=== PATIENT | female | born 1990 | race Caucasian/White ===

== ENCOUNTER 2017-07-27 23:10 | Emergency (ER) | payer OTHER ==
[2017-07-27 23:29] VITALS: BP 107/65; PULSE 85; TEMP 98.5; BMI 31.2
--- NOTE | 2017-07-28 00:38 | PDOC ---
History of Present Illness - General Chief Complaint: Pain, Acute Stated Complaint: ABDOMINAL PAIN/4 WKS Time Seen by Provider: 07/27/17 23:34 - History of Present Illness Initial Comments: 27 year old healthy [id number] ( 5 years prior) with positive upreg (LMP 06/07/17) at [place] presenting with breast soreness and left lower quadrant pain. The pain started yesterday evening and is sharp 8/10, semi-positional, non -radiating. Did not use any medication for the pain. denies dysuria, vaginal bleeding, vaginal discharge, nausea, vomiting,. diarrhea, chest pain, SOB, or other symptoms. She does not have a mcat tutor and is not taking vitamins. 07/27/17 23:50 Past History - Past Medical History Allergies/Adverse Reactions: Allergies Allergy/AdvReac Type Severity Reaction Status Date / Time No Known Allergies Allergy Verified 07/27/17 23:26 Home Medications: Ambulatory Orders Ferrous Sulfate [Feosol] 325 mg PO BID #1 ud 04/24/12 Vitamins (Sjr) - 1 tab PO DAILY #1 tablet 04/24/12 Asthma: No Cancer: No Cardiac Disorders: No Diabetes: No HTN: No Seizures: No Thyroid Disease: No - Suicide/Smoking/Psychosocial Hx Smoking History: Never smoked Have you smoked in the past 12 months: No Hx Alcohol Use: No Drug/Substance Use Hx: No Hx Substance Use Treatment: No Review of Systems - Review of Systems Constitutional: No: Chills, Diaphoresis, Fever, Loss of Appetite HEENTM: No: Eye Pain, Blurred Vision Respiratory: No: Cough, Shortness of Breath, Wheezing Cardiac (ROS): No: Chest Pain, Edema, Irregular Heart Rate ABD/GI: No: Diarrhea, Nausea, Vomiting : No: Dysuria, Discharge, Frequency Musculoskeletal: No: Back Pain, Joint Pain Integumentary: No: Bruising, Erythema, Lesions, Lumps, Pruritus Neurological: No: Headache, Numbness, Paresthesia *Physical Exam - Vital Signs Last Vital Signs Temp Pulse Resp BP Pulse Ox 98.5 F 85 16 107/65 100 07/27/17 23:26 07/27/17 23:26 07/27/17 23:26 07/27/17 23:26 07/27/17 23:26 - Physical Exam General Appearance: Yes: Nourished, Appropriately Dressed. No: Apparent Distress HEENT: positive: EOMI, PAZ, Normal ENT Inspection, Normal Voice Neck: positive: Trachea midline, Normal Thyroid, Supple. negative: Tender, Rigid Respiratory/Chest: positive: Lungs Clear, Normal Breath Sounds, Respiratory Distress. negative: Chest Tender, Accessory Muscle Use Cardiovascular: positive: Regular Rhythm, Regular Rate Gastrointestinal/Abdominal: positive: Normal Bowel Sounds, Tender (LLQ tenderness), Flat, Soft Musculoskeletal: positive: Normal Inspection. negative: CVA Tenderness Extremity: positive: Normal Capillary Refill, Normal Inspection, Normal Range of Motion. negative: Tender Integumentary: positive: Normal Color, Dry, Warm Neurologic: positive: Fully Oriented, Alert, Normal Mood/Affect, Normal Response ED Treatment Course - LABORATORY CBC & Chemistry Diagram: 07/28/17 00:48 07/28/17 00:48 - RADIOLOGY Radiology Studies Ordered: Category Date Time Status TRANSVAGINAL US PREG [US] Stat Ultrasound 07/27/17 23:48 Ordered Medical Decision Making - Medical Decision Making 27 year old female with positive urine preg and left lower quadrant pain. Abdominal exam signifciant for some mild tenderness to deep plapation in the LLQ. BHCG 1357 without evidence of on TVUS so likely early IUP vs. ectopic. Will have to have her follow up in two days for repeat hcg and US. Will discharge with return precautions, follow up information, and tylenol use instructions for her pain. 07/28/17 02:50 *DC/Admit/Observation/Transfer Diagnosis at time of Disposition: Qualifiers: Weeks of gestation: less than 8 weeks Qualified Code(s): Z3A.01 - Less than 8 weeks gestation of - Discharge Dispostion Disposition: HOME Condition at time of disposition: Improved Admit: No - Referrals Referrals: Alfonso Montejo MD [Staff Physician] - - Patient Instructions Printed Discharge Instructions: DI for -- Discomforts and Remedies Additional Instructions: Est embarazada, cruz puede ser demasiado temprano para lisa el embarazo con ultrasonido. Debe seguir con el Dr. Solitario para obtener un buen cuidado de webb beb por nacer y programar otro ultrasonido. Por favor use Tylenol para el dolor. Regrese al servicio de urgencias si el dolor empeora a pesar de Tylenol o si tiene sangrado vaginal, fiebre, escalofros, nuseas, vmitos o diarrea. Print Language: TAJIK - Post Discharge Activity
--- NOTE | 2017-07-28 00:49 | PDOC ---
Attending Attestation - Resident Resident Name: Erendira Craig - ED Attending Attestation I have performed the following: I have examined & evaluated the patient, The case was reviewed & discussed with the resident, I agree w/resident's findings & plan, Exceptions are as noted <Josafat Odonnell - Last Filed: 07/28/17 00:49> - HPI HPI: 07/28/17 00:52 The patient is a 27 year old female, , with no significant past medical history, who presents to the emergency department with left lower abdominal pain and bilateral breast soreness today after having a positive urine test. She states the abdominal pain keeps her from sleeping. She denies radiation of her left lower abdominal pain. 06/07/17 LMP The patient denies chest pain, shortness of breath, headache and dizziness. The patient denies fever, chills, nausea, vomit, diarrhea and constipation. The patient denies dysuria, frequency, urgency hematuria, or vagnal bleeding. Allergies: NKDA - Physicial Exam PE: 07/28/17 00:52 GENERAL: Well developed, well nourished. Awake and alert. No acute distress. HEENT: Normocephalic, atraumatic. PERRLA, EOMI. No conjunctival pallor. Sclera are non- icteric. Moist mucous membranes. Oropharynx is clear. NECK: Supple. Full ROM. No JVD. Carotid pulses 2+ and symmetric, without bruits. No thyromegaly. No lymphadenopathy. CARDIOVASCULAR: Regular rate and rhythm. No murmurs, rubs, or gallops. Distal pulses are 2+ and symmetric. PULMONARY: No evidence of respiratory distress. Lungs clear to auscultation bilaterally. No wheezing, rales or rhonchi. ABDOMINAL: (+) left lower abdominal tenderness to palpation. Soft. Non-distended. No rebound or guarding. No organomegaly. Normoactive bowel sounds. MUSCULOSKELETAL Normal range of motion at all joints. No bony deformities or tenderness. No CVA tenderness. EXTREMITIES: No cyanosis. No clubbing. No edema. No calf tenderness. SKIN: Warm and dry. Normal capillary refill. No rashes. No jaundice. NEUROLOGICAL: Alert, awake, appropriate. Cranial nerves 2-12 intact. Normoreflexic in the upper and lower extremities. Normal speech. Toes are down-going bilaterally. Gait is normal without ataxia. PSYCHIATRIC: Cooperative. Good eye contact. Appropriate mood and affect. - Medical Decision Making 07/28/17 00:53 Documentation prepared by Nathaly Smart, acting as medical receptionist for Josafat Odonnell DO. <Nathaly Smart - Last Filed: 07/28/17 00:53>
[2017-07-28 00:53] LABS: BASO % 0.7 % (0-2.0); EOS % 0.8 % (0-4.5); HEMOGLOBIN 11.9 GM/dL (10.7-15.3); LYMPH % 26.9 % (8-40); MCH 29.6 pg (25.7-33.7); MCHC 33.1 g/dl (32.0-36.0); MEAN CELL VOLUME 89.6 fl (80-96); MEAN PLT VOLUME 8.3 fl (7.5-11.1); MONO % 8.9 % (3.8-10.2); NEUT % 62.7 % (42.8-82.8); PLATELET COUNT 222 K/MM3 (134-434); RBC 4.01 M/mm3 (3.60-5.2); RDW 13.6 % (11.6-15.6); WHITE BLOOD COUNT 7.6 K/mm3 (4.0-10.0)
[2017-07-28 00:58] LABS: URINE APPEARANCE CLEAR; URINE BILIRUBIN NEGATIVE (NEGATIVE); URINE BLOOD NEGATIVE (NEGATIVE); URINE COLOR STRAW; URINE GLUCOSE (UA) NEGATIVE (NEGATIVE); URINE KETONE NEGATIVE (NEGATIVE); URINE LEUK ESTERASE TRACE (NEGATIVE); URINE NITRITE NEGATIVE (NEGATIVE); URINE PROTEIN NEGATIVE (NEGATIVE); URINE UROBILINOGEN NEGATIVE mg/dL (0.2-1.0)
[2017-07-28 01:10] LABS: EPI CELLS RARE /HPF (FEW)
[2017-07-28 01:16] LABS: ALBUMIN 3.8 g/dl (3.4-5.0); ANION GAP 9 (8-16); BILIRUBIN,TOTAL 0.2 mg/dL (0.2-1.0); BLOOD UREA NITROGEN 9 mg/dL (7-18); CALCIUM 9.1 mg/dL (8.5-10.1); CHLORIDE 107 mmol/L (98-107); CO2 24 mmol/L (21-32); CREATININE 0.6 mg/dL (0.55-1.02); GLUCOSE,RANDOM 82 mg/dL (74-106); POTASSIUM 3.9 mmol/L (3.5-5.1); SGOT/AST 22 U/L (15-37); SGPT/ALT 45 U/L (12-78); SODIUM 140 mmol/L (136-145); TOT PROT 7.4 g/dl (6.4-8.2)
[2017-07-28 01:31] LABS: ALK PHOS 74 U/L (45-117)
== END 2017-07-28 03:40 | disposition home or self-care (01) ==
LOC: JER 23:10
DX: O26.891 Other specified pregnancy related conditions, first trimester (principal); R10.32 Left lower quadrant pain; O92.29 Other disorders of breast associated with pregnancy and the puerperium; Z3A.01 Less than 8 weeks gestation of pregnancy
CPT/HCPCS: 36415; 76817-TC; 80053; 81003; 81015; 84702; 85025; 86850; 86900; 86901; 87086; 99282-25

== ENCOUNTER 2018-03-13 20:15 | Inpatient (IN) | payer OTHER ==
[2018-03-13 21:04] LABS: BASO % 0.5 % (0-2.0); EOS % 0.5 % (0-4.5); HEMATOCRIT 32.5 % (32.4-45.2); HEMOGLOBIN 10.9 GM/dL (10.7-15.3); LYMPH % 18.1 % (8-40); MCH 30.9 pg (25.7-33.7); MCHC 33.7 g/dl (32.0-36.0); MEAN CELL VOLUME 91.6 fl (80-96); MEAN PLT VOLUME 8.6 fl (7.5-11.1); MONO % 8.4 % (3.8-10.2); NEUT % 72.5 % (42.8-82.8); PLATELET COUNT 234 K/MM3 (134-434); RBC 3.55 M/mm3 (3.60-5.2); RDW 13.3 % (11.6-15.6); WHITE BLOOD COUNT 7.5 K/mm3 (4.0-10.0)
[2018-03-13 21:30] LABS: INR 0.88 (0.83-1.09)
[2018-03-13 21:33] LABS: ACTIVATED PTT 25.8 SECONDS (25.2-36.5)
[2018-03-13 21:37] LABS: ANION GAP 11 MMOL/L (8-16); BLOOD UREA NITROGEN 7 mg/dL (7-18); CALCIUM 9.1 mg/dL (8.5-10.1); CHLORIDE 109 mmol/L (98-107); CO2 21 mmol/L (21-32); CREATININE 0.5 mg/dL (0.55-1.3); GLUCOSE,RANDOM 97 mg/dL (74-106); POTASSIUM 3.7 mmol/L (3.5-5.1); SODIUM 141 mmol/L (136-145)
[2018-03-13 22:43] VITALS: BMI 35.5
--- NOTE | 2018-03-13 22:50 | HP ---
Past Medical History - Admission Chief Complaint: Induction for cholestasis of History of Present Illness: 28yo LMP 06/07 EDC 03/28 by 8 week sonkaty presents for induction for cholestasis of . Pt with elevated bile acids of 20 and discomfort because of pruritis. PNC at [facility] [address] significant for cholestasis of dx recently. 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 SPECIALIST: No: Alzheimer's, CVA, Dementia, Migraine, Multiple Sclerosis, Peripheral Neuropathy, Parkinson's, Seizure, Syncope, TIA, Vertigo, Other Cardiovascular: No: AFIB, Aneurysm, Aortic Insufficiency, Aortic Stenosis, CAD, CHF, Deep Vein Thrombosis, HTN, Hyperlipdemia, [place], Mitral Insufficiency, Mitral Stenosis, Murmur, Pulmonary Hypertension, Other Pulmonary: No: Asthma, Bronchitis, Cancer, COPD, O2 Dependent, Pneumonia, Previously Intubated, Pulmonary Embolus, Pulmonary Fibrosis, Sleep Apnea, Other Gastrointestinal: No: Ascites, Cancer, Constipation, Crohn's Disease, Diverticulitis, Diverticulosis, Esophageal Varices, Gastritis, GERD, GI Bleed, Hemorrhoids, Hiatal Hernia, Inflamatory Bowel Disease, Irritable Bowel Disease, Pancreatitis, Peptic Ulcer Disease, Ulcerative Colitis, Other Hepatobiliary: No: Cirrhosis, Cholelithiasis, Cholecystitis, Choledocholithiasis , Hepatitis A, Hepatitis B, Hepatitis C, Other Renal/: No: Renal Failure, Renal Inusuff, BPH, Cancer, Hematuria, Hemodialysis , Neurogenic Bladder, Renal Calculi, UTI, Other Reproductive: No: Ectopic , Endometriosis, Fibroids, PID, Polycystic Ovary Syndrome, Postmenopausal, Other ...: 2 ...Para: 1 ...Term: 1 ...: 0 ...Spon : 0 ...Induced : 0 ...Multiple Gestation: 0 ...LMP: 06/07/18 ...EDC by Sono: 03/28/18 Heme/Onc: No: Anemia, B12 Deficiency, Bleeding Disorder, Cancer, Current Chemotherapy, Current Radiation Therapy, Hemochromatosis, Hypercoaguable State, Myeloproliferative Synd, Sickle Cell Disease, Sickle Cell Trait, Thrombocytopenia, Other Infectious Disease: No: AIDS, C-Diff, Herpes Zoster, HIV, MRSA, STD's, Tuberculosis, VREF, Other Psych: No: Addictions, Anxiety, Bipolar, Depression, Panic, Psychosis, Schizophrenia, Other Musculoskeletal: No: Bursitis, Chronic low back pain, Hemiparesis, Hemiplegia, Osteoarthritis, Paraplegia, Other Endocrine: No: Pine's Disease, Saulsbury's Disease, Diabetes Insipidus, Diabetes Mellitus, Hyperparathyroidism, Hyperthyroidism, Hypothyroidism, Osteopenia, SIADH, Other - Past Surgical History Past Surgical History: Yes: None Hx Myomectomy: No Hx Transabdominal Cerclage: No - Smoking History Smoking history: Never smoked Have you smoked in the past 12 months: No - Alcohol/Substance Use Hx Alcohol Use: No History of Substance Use: reports: None Home Medications - Allergies Allergies/Adverse Reactions: Allergies Allergy/AdvReac Type Severity Reaction Status Date / Time No Known Allergies Allergy Verified 07/27/17 23:26 - Home Medications Home Medications: Ambulatory Orders Ferrous Sulfate [Feosol] 325 mg PO BID #1 ud 04/24/12 Vitamins (Sjr) - 1 tab PO DAILY #1 tablet 04/24/12 Family Disease History - Family Disease History Family History: Unremarkable Review of Systems - Review of Systems Constitutional: denies: No Symptoms, Chills, Diaphoresis, Fever, Lethargy, Loss of Appetite, Malaise, Night Sweats, Unintentional Wgt. Loss, Weakness, Other Eyes: denies: No Symptoms, Blind Spots, Blurred Vision, Double Vision, Eye Pain , Floaters, Photophobia, Recent Change in Vision, Other HENT: denies: No Symptoms, Difficult Swallowing, Ear Discharge, Ear Pain, Epistaxis, Gingival Bleeding, Hearing Loss, Mouth Swelling, Nasal Congestion, Ocular Prosthesis, Throat Pain, Toothache, Ringing in Ears, Other Neck: denies: No Symptoms, Decreased ROM, Lumps, Pain on Movement, Stiffness, Swollen Glands, Tenderness, Other Cardiovascular: denies: No Symptoms, Chest Pain, Edema, Palpitations, Shortness of Breath, Other Respiratory: denies: No Symptoms, Cough, Exercise Intolerance, Hemoptysis, Orthopnea, PND, Snoring, SOB, SOB on Exertion, Wheezing, Other Gastrointestinal: denies: No Symptoms, Abdominal Pain, Bloating, Constipation, Diarrhea, Dysphagia, Indigestion, Melena, Nausea, Rectal Bleeding, Vomiting, Vomiting Blood, Other Genitourinary: denies: No Symptoms, Burning, Discharge, Dysuria, Flank Pain, Frequency, Hematuria, Incontinence, Lesions, Menses, Pain, Testicular Mass, Testicular Pain, Testicular Swelling, Urgency, Vaginal Bleeding, Other Breasts: denies: No Symptoms Reported, See HPI, Breast Implants, Discharge from Nipple, Lumps, Pain, Skin Changes, Other Musculoskeletal: denies: No Symptoms, Back Pain, Crepitus, Decreased ROM, Extremity Pain, Joint Pain, Joint Swelling, Muscle Pain, Muscle Cramps, Muscle Weakness, Other Integumentary: denies: No Symptoms, Blister, Bruising, Change in Color, Eczema, Erythema, Incision, Lesions, Lump, Pallor, Pruritis, Rash, Wound, Other Neurological: denies: No Symptoms, Change in LOC, Change in Speech, Confusion, Dizziness, Headache, Incoordination, Numbness, Parasthesia, Pre-Existing Deficit , Seizure, Syncope, Tremors, Unsteady Gait, Weakness, Other Endocrine: reports: No Symptoms Hematology/Lymphatic: reports: No Symptoms Psychiatric: reports: No Symptoms Pain Intensity: 0 Physical Exam - Maternity Vital Signs: Vital Signs Temperature 98.1 F 03/13/18 22:00 Pulse Rate 81 03/13/18 22:00 Respiratory Rate 20 03/13/18 22:00 Blood Pressure 113/68 03/13/18 22:00 O2 Sat by Pulse Oximetry (%) Constitutional: Yes: Well Nourished Eyes: Yes: WNL, Conjunctiva Clear, EOM Intact HENT: Yes: WNL, Atraumatic, Normocephalic Neck: Yes: WNL, Supple, Trachea Midline Cardiovascular: Yes: WNL, Regular Rate and Rhythm Breast(s): Yes: WNL - Abdominal Exam/OB Fundal Height: 38 Number of Fetuses: Single Presentation: Vertex Contractions: No Intensity: Unaware Monitor Mode: External Heart Rate (range): 130 mod moses +accels no baseline change Category: I Accelerations: Uniform Decelerations: None - Vaginal Exam/OB Vaginal Bleediing: No Speculum Exam: No Dilatation (cm): 1-2 Effacement (%): long Amniotic Membrane Status: Intact Presentation: Vertex/Position Station: -3 - Physical Exam Musculoskeletal: Yes: WNL Extremities: Yes: WNL Edema: No Integumentary: Yes: WNL ...Motor Strength: WNL Psychiatric: Yes: WNL - Labs Lab Results: CBC, BMP 03/13/18 20:45 03/13/18 20:45 Hemorrhage Risk Assessment - Risk Factors Medium Risk Factors: Yes: None High Risk Factors: Yes: None Risk Score: 1 Risk Level: Medium Risk Problem List - Problems (1) Cholestasis during in third trimester Assessment/Plan: 28yo at 37.6 with cholestasis of for induction admit to labor and delivery category 1 tracing plan for cervidil induction; r/b/a reviewed pain management as needed GBS positive; will start ampicillin Dr. Lewis Code(s): O26.613 - LIVER AND BILIARY TRACT DISORD IN , THIRD TRIMESTER ; K83.1 - OBSTRUCTION OF BILE DUCT
[2018-03-13] MEDS ORDERED: DINOPROSTONE 10 MG VAGINAL SUPPOSITORY VG ONE (22:54)
[2018-03-13] MEDS ORDERED: BUTORPHANOL TARTRATE 1 MG/ML VIAL IVPB PRN (22:54)
[2018-03-13] MEDS ORDERED: PROMETHAZINE HCL 25 MG/1 ML VIAL IVPUSH PRN (22:54)
[2018-03-13] MEDS ORDERED: AMPICILLIN - 2 GM in SODIUM CHLORIDE 100 ML IVPB ONE (22:58)
[2018-03-13] MEDS ORDERED: DEXTROSE 5%-LACTATED RINGERS 1,000 ML IV SCH (23:00)
[2018-03-14] MEDS ORDERED: AMPICILLIN SODIUM 2 GM VIAL ONE (00:36)
[2018-03-14] MEDS ORDERED: AMPICILLIN SODIUM 1 GM VIAL ONE ×3 (03:18→12:34)
[2018-03-14] MEDS: AMPICILLIN - 1 GM in SODIUM CHLORIDE 100 ML IVPB SCH ×5 (04:45→18:30)
[2018-03-14] MEDS ORDERED: OXYTOCIN 30 UNITS in 0.9% NS 30 UNIT/500 ML INFUS.BAG IVPB ONE (09:08)
--- NOTE | 2018-03-14 12:53 | PN ---
Progress Note (short form) - Note Progress Note: 28 yo @ 38 weeks gestation, EDC 03/28/18, status post cervidil induction due to Cholestasis of , seen and evaluated. She c/o mild abdominal cramps. FHR : Reassuring Mineral : + regular contractions VE : /-1 AROM : clear A/P : 38 weeks gestation S/P Cervidil induction Pitocin augmentation Analgesia as needed Anticipate
[2018-03-14] MEDS ORDERED: OXYTOCIN 30 UNITS in 0.9% NS 30 UNIT/500 ML INFUS.BAG IVPB SCH (13:00)
[2018-03-14] MEDS ORDERED: BUTORPHANOL TARTRATE 1 MG/ML VIAL IVPUSH PRN (14:55)
[2018-03-14] MEDS ORDERED: PROMETHAZINE HCL 25 MG/1 ML VIAL IVPUSH PRN (14:56)
--- NOTE | 2018-03-14 15:59 | PN ---
Progress Note (short form) - Note Progress Note: Patient seen and evaluated. She c/o moderate discomfort. VE : /-1 FHR : Non Reassuring Contractions : None seen A/P : Status post cervidil induction Internal monitoring IUPC Continue Pitocin Anticipate
[2018-03-14] MEDS ORDERED: METHYLERGONOVINE MALEATE 0.2 MG/1 ML AMP IM PRN (16:56)
[2018-03-14] MEDS ORDERED: ACETAMINOPHEN 325 MG TABLET (FP) PO PRN (16:56)
[2018-03-14] MEDS ORDERED: BISACODYL 10 MG SUPP.RECT RC PRN (16:56)
[2018-03-14] MEDS ORDERED: BENZOCAINE 20% 57 GM BOTTLE TP PRN (16:56)
[2018-03-14] MEDS ORDERED: WITCH HAZEL 50% (TUCKS) 40 PAD/JAR PAD TP PRN (16:56)
[2018-03-14] MEDS ORDERED: IBUPROFEN 600 MG TABLET (FP) PO PRN (16:56)
[2018-03-14] MEDS ORDERED: BENZOCAINE 28 GM HEMORRHOIDAL OINTMENT TP PRN (16:56)
--- NOTE | 2018-03-14 16:59 | PN ---
Delivery - Delivery Vaginal Delivery: Spontaneous Episiotomy/Laceration: None EBL (cc): 300 Delivery, Single - Feeding Plan Initial Plan: Exclusive throughout hospitalization Remarks - Remarks Remarks: Normal spontaneous vaginal delivery od a live over intact perineum. Nose / Oropharynx suctioned @ perineum. Cord clamped and cut. Placenta expelled spontaneously intact. Baby handed to Gm. Mother in stable condition
[2018-03-14] MEDS ORDERED: OXYTOCIN 20 UNITS in 0.9% NS 20 UNIT/1,000 ML INFUS.BAG IV SCH (17:00)
[2018-03-14] MEDS ORDERED: OXYTOCIN 20 UNITS in 0.9% NS 20 UNIT/1,000 ML INFUS.BAG IV ONE (17:25)
[2018-03-14] MEDS: FERROUS SO4 325 MG TABLET (FP) PO SCH (22:05)
[2018-03-15 07:11] LABS: BASO % 0.3 % (0-2.0); EOS % 0.8 % (0-4.5); HEMATOCRIT 30.9 % (32.4-45.2); HEMOGLOBIN 10.2 GM/dL (10.7-15.3); LYMPH % 15.8 % (8-40); MCH 30.3 pg (25.7-33.7); MEAN CELL VOLUME 91.8 fl (80-96); MEAN PLT VOLUME 8.4 fl (7.5-11.1); MONO % 6.8 % (3.8-10.2); NEUT % 76.3 % (42.8-82.8); PLATELET COUNT 199 K/MM3 (134-434); RBC 3.37 M/mm3 (3.60-5.2); WHITE BLOOD COUNT 11.4 K/mm3 (4.0-10.0)
[2018-03-15] MEDS: FERROUS SO4 325 MG TABLET (FP) PO SCH ×2 (09:38→21:53)
[2018-03-15] MEDS: PRENATAL VITAMINS W/ FOLIC ACID TABLET (FP) PO SCH (09:38)
[2018-03-15] MEDS ORDERED: DIPHTH,PERTUSS(ACELL),TET 0.5 ML DISP.SYRIN IM ONE (10:00)
[2018-03-15] MEDS ORDERED: SENNOSIDES/DOCUSATE COMBO (SENNA PLUS) TABLET (UD) PO PRN (22:00)
--- NOTE | 2018-03-15 22:41 | PN ---
Post Progress Note - Subjective Subjective: 28 yo Para 2 status post vaginal delivery, seen and evaluated. Doing well. Post Day: 1 Type of Delivery: Vital Signs: Vital Signs Temperature 98.1 F 03/15/18 21:33 Pulse Rate 109 H 03/15/18 21:33 Respiratory Rate 18 03/15/18 21:33 Blood Pressure 117/68 03/15/18 21:33 O2 Sat by Pulse Oximetry (%) Breast Exam: Yes: Soft Uterus: Yes: Fundus Firm Abdomen/GI: Yes: Abdomen soft Lochia: Yes: Rubra Lochia, amount: Moderate Extremities: Yes: Calves non-tender Perineum: Yes: Intact Activity: Ambulating - Labs Labs: CBC WBC 11.4 K/mm3 (4.0-10.0) H 03/15/18 06:35 RBC 3.37 M/mm3 (3.60-5.2) L 03/15/18 06:35 Hgb 10.2 GM/dL (10.7-15.3) L 03/15/18 06:35 Hct 30.9 % (32.4-45.2) L 03/15/18 06:35 MCV 91.8 fl (80-96) 03/15/18 06:35 MCH 30.3 pg (25.7-33.7) 03/15/18 06:35 MCHC 33.0 g/dl (32.0-36.0) 03/15/18 06:35 RDW 13.0 % (11.6-15.6) 03/15/18 06:35 Plt Count 199 K/MM3 (134-434) 03/15/18 06:35 MPV 8.4 fl (7.5-11.1) 03/15/18 06:35 Absolute Neuts (auto) 8.7 K/mm3 (1.5-8.0) H 03/15/18 06:35 Neutrophils % 76.3 % (42.8-82.8) 03/15/18 06:35 Lymphocytes % 15.8 % (8-40) 03/15/18 06:35 Monocytes % 6.8 % (3.8-10.2) 03/15/18 06:35 Eosinophils % 0.8 % (0-4.5) 03/15/18 06:35 Basophils % 0.3 % (0-2.0) 03/15/18 06:35 Nucleated RBC % 0 % (0-0) 03/15/18 06:35 Problem List - Problems (1) Status post normal vaginal delivery Code(s): HKR8056 - Assessment/Plan Status post vaginal delivery Stable Continue care
[2018-03-16] MEDS: PRENATAL VITAMINS W/ FOLIC ACID TABLET (FP) PO SCH (10:00)
[2018-03-16] MEDS: FERROUS SO4 325 MG TABLET (FP) PO SCH (10:00)
--- NOTE | 2018-03-16 10:12 | DS ---
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 Vital Signs: Vital Signs Temperature 98.1 F 03/15/18 21:33 Pulse Rate 109 H 03/15/18 21:33 Respiratory Rate 18 03/15/18 21:33 Blood Pressure 117/68 03/15/18 21:33 O2 Sat by Pulse Oximetry (%) Constitutional: Yes: Well Nourished Eyes: Yes: Conjunctiva Clear HENT: Yes: Atraumatic Neck: Yes: Supple Cardiovascular: Yes: Regular Rate and Rhythm Respiratory: Yes: Regular Gastrointestinal: Yes: Normal Bowel Sounds External Genitalia: Yes: Normal Vaginal Exam: Yes: Normal Cervix: Yes: Normal Uterus: Yes: Firm ....Post : Yes: Uterus firm, Moderate lochia serosa Extremities: Yes: WNL Integumentary: Yes: WNL Neurological: Yes: Alert, Oriented ...Motor Strength: WNL Psychiatric: Yes: Alert, Oriented Labs: CBC, BMP 03/15/18 06:35 03/13/18 20:45 Delivery - Delivery Vaginal Delivery: Spontaneous Episiotomy/Laceration: None EBL (cc): 300 Delivery, Single - Stages of Labor Date 1st Stage Initiatied: 03/14/18 Time 1st Stage Initiated: 08:00 Date 2nd Stage Initiated: 03/14/18 Time 2nd Stage Initiated: 16:30 Date of Delivery: 03/14/18 Time of Delivery: 16:40 Time Placenta Delivered: 16:45 - Condition of Infant 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 Routine care. Condition: Good - Instructions Diet, Activity, Other Instructions: Regular diet No douching, no sexual intercourse x 6 weeks F/U with MD in 6 weeks Disposition: HOME - Home Medications Comprehensive Discharge Medication List: Ambulatory Orders Ferrous Sulfate [Feosol] 325 mg PO BID #1 ud 11/06/12 Vitamins (Sjr) - 1 tab PO DAILY #1 tablet 04/24/12
[2018-03-16 12:31] VITALS: BP 114/70; PULSE 97; TEMP 98
== END 2018-03-16 14:30 | disposition home or self-care (01) | DRG 560 ==
LOC: JLDR 20:15 → J3W 03-14 17:50
PROVIDERS: ADMIT Obstetrics & Gynecology; ATTEND Obstetrics & Gynecology
PROC: 3E0P7VZ Introduction of Hormone into Female Reproductive, Via Natural or Artificial Opening (ICD-10-PCS; 2018-03-13)
PROC: 10E0XZZ Delivery of Products of Conception, External Approach (ICD-10-PCS; principal; 2018-03-14)
DX: O26.62 Liver and biliary tract disorders in childbirth (principal); K83.1 Obstruction of bile duct; O99.824 Streptococcus B carrier state complicating childbirth; Z3A.38 38 weeks gestation of pregnancy; Z37.0 Single live birth
CPT/HCPCS: 36415; 59409; 80048; 85025; 85610; 85730; 86593; 86850; 86900; 86901; 90686; 90715; G0008

== ENCOUNTER 2018-04-19 14:50 | Emergency (ER) | payer OTHER ==
--- NOTE | 2018-04-19 15:04 | PDOC ---
Rapid Medical Evaluation Chief Complaint: Rash Time Seen by Provider: 04/19/18 15:00 Medical Evaluation: Allergies Allergy/AdvReac Type Severity Reaction Status Date / Time No Known Allergies Allergy Verified 03/14/18 03:30 04/19/18 15:01 I have performed a brief in person evaluation of this patient. The patient presents with a CC of: rash x 1 week PE: Skin: diffuse macular erythematous lesions on her LEs, no signs of secondary infection. Lungs: Clear Heart: RRR MS: Moves all extremities without difficulty. Psych: Age appropriate. The patient will proceed to [facility]K for further evaluation. Discharge Disposition - Diagnosis Rash and nonspecific skin eruption - Referrals Referrals: Anastasia Currie MD [Primary Care Provider] - - Patient Instructions - Post Discharge Activity
[2018-04-19 15:07] VITALS: BP 106/61; PULSE 58; TEMP 99.1; BMI 32.4
--- NOTE | 2018-04-19 16:04 | PDOC ---
History of Present Illness - General Chief Complaint: Rash Stated Complaint: RASH Time Seen by Provider: 04/19/18 15:00 History Source: Patient, Ripening Room Operator Used ([id number] german interp.) Exam Limitations: Language Barrier - History of Present Illness Initial Comments: 04/19/18 15:52 28 yr female with itchy rash to lower legs for one week no fever no cough. Pt has history of inflamed liver, states she had same itchy rash when . Pt is 5 weeks post . 04/19/18 16:04 Past History - Past Medical History Allergies/Adverse Reactions: Allergies Allergy/AdvReac Type Severity Reaction Status Date / Time No Known Allergies Allergy Verified 04/19/18 15:01 Home Medications: Ambulatory Orders Cephalexin [Keflex] 500 mg PO BID #10 capsule 04/19/18 Hydrocortisone 1% Ointment [Hytone 1% Ointment -] 1 applic TP TID #1 tube Asthma: No Cancer: No Cardiac Disorders: No COPD: No Diabetes: No GI Disorders: Yes (inflamed liver) HTN: No Seizures: No Thyroid Disease: No - Reproductive History (#): 1 Para: 1 - Immunization History Immunization Up to Date: Yes - Suicide/Smoking/Psychosocial Hx Smoking History: Never smoked Have you smoked in the past 12 months: No Hx Alcohol Use: No Drug/Substance Use Hx: No Substance Use Type: None Hx Substance Use Treatment: No Review of Systems - Review of Systems Able to Perform ROS?: Yes Is the patient limited Gambian proficient: Yes Constitutional: No: Symptoms Reported HEENTM: No: Symptoms Reported Respiratory: No: Symptoms reported Cardiac (ROS): No: Symptoms Reported ABD/GI: No: Symptoms Reported, Constipated, Diarrhea, Nausea, Poor Appetite, Vomiting : No: Symptoms Reported Integumentary: Yes: Symptoms Reported *Physical Exam - Vital Signs Last Vital Signs Temp Pulse Resp BP Pulse Ox 99.1 F 58 L 16 106/61 99 04/19/18 15:02 04/19/18 15:02 04/19/18 15:02 04/19/18 15:02 04/19/18 15:02 - Physical Exam General Appearance: Yes: Nourished, Appropriately Dressed HEENT: positive: EOMI, PAZ, Normal ENT Inspection, TMs Normal, Pharynx Normal Neck: positive: Supple. negative: Tender Respiratory/Chest: positive: Lungs Clear, Normal Breath Sounds. negative: Chest Tender Cardiovascular: positive: Regular Rhythm, Regular Rate Gastrointestinal/Abdominal: positive: Normal Bowel Sounds, Soft. negative: Tender Musculoskeletal: positive: Normal Inspection Extremity: positive: Normal Capillary Refill, Normal Inspection, Normal Range of Motion Integumentary: positive: Rash (bilateral lower legs and feet with multiple scars , small maculopapular raised red with white center) ED Treatment Course - LABORATORY CBC & Chemistry Diagram: 04/19/18 16:14 04/19/18 16:14 Medical Decision Making - Medical Decision Making 04/19/18 16:07 cc: itchy rash , has had in the past no urinary complaints or abd pain or diarrhea pt denies ETOH or illicit drug use, denies any history of hepatitis will check labs pt is will prescribe cortisone cream for the itchy rash refer to primary care 04/19/18 17:06 *DC/Admit/Observation/Transfer Diagnosis at time of Disposition: Rash and nonspecific skin eruption Urinary tract infection Qualifiers: Urinary tract infection type: acute cystitis Hematuria presence: with hematuria Qualified Code(s): N30.01 - Acute cystitis with hematuria - Discharge Dispostion Disposition: HOME Condition at time of disposition: Good - Prescriptions Prescriptions: Cephalexin [Keflex] 500 mg PO BID #10 capsule Hydrocortisone 1% Ointment [Hytone 1% Ointment -] 1 applic TP TID #1 tube - Referrals Referrals: Anastasia Curire MD [Primary Care Provider] - Albert Salgado MD [Staff Physician] - - Patient Instructions Additional Instructions: follow up with your doctor or with as listed below call tomorrow to make appointment apply the cortisone cream to the itchy rash twice a day small amounts to the areas of redness return if any worsening symptoms, you must see your primary care for further evaluation and continued care. nica un seguimiento con webb mdico o con el jerrod se indica a continuacin , llame maana para hacer tati maggie Aplique la crema de cortisona a la erupcin que pica dos veces al da en pequeas cantidades en las reas de enrojecimiento. Regrese si los sntomas empeoran, debe lisa webb atencin primaria para tati evaluacin adicional y atencin continua. - Post Discharge Activity
[2018-04-19 16:30] LABS: URINE APPEARANCE SLCLOUDY; URINE BILIRUBIN NEGATIVE (<2.0 mg/dL); URINE COLOR LTYELLOW; URINE GLUCOSE (UA) NEGATIVE (NEGATIVE); URINE KETONE NEGATIVE (NEGATIVE); URINE LEUK ESTERASE 3+ (NEGATIVE); URINE NITRITE NEGATIVE (NEGATIVE); URINE PROTEIN NEGATIVE (NEGATIVE); URINE UROBILINOGEN NEGATIVE mg/dL (0.2-1.0)
[2018-04-19 16:43] LABS: EPI CELLS RARE /HPF (FEW); URINE MUCUS RARE; YEAST RARE
[2018-04-19 16:54] LABS: ALBUMIN 3.8 g/dl (3.4-5.0); ALK PHOS 109 U/L (45-117); ANION GAP 7 MMOL/L (8-16); BILIRUBIN,TOTAL 0.2 mg/dL (0.2-1); BLOOD UREA NITROGEN 16 mg/dL (7-18); CALCIUM 9.3 mg/dL (8.5-10.1); CHLORIDE 104 mmol/L (98-107); CO2 27 mmol/L (21-32); CREATININE 0.5 mg/dL (0.55-1.3); GLUCOSE,RANDOM 93 mg/dL (74-106); POTASSIUM 3.9 mmol/L (3.5-5.1); SGOT/AST 37 U/L (15-37); SGPT/ALT 70 U/L (13-61); SODIUM 137 mmol/L (136-145); TOT PROT 7.5 g/dl (6.4-8.2)
[2018-04-19 16:55] LABS: INR 0.92 (0.83-1.09); PROTHROMBIN TIME (PATIENT) 10.9 SEC (9.7-13.0)
[2018-04-19 17:58] LABS: BASO % 0.6 % (0-2.0); EOS % 1.6 % (0-4.5); HEMATOCRIT 38.3 % (32.4-45.2); HEMOGLOBIN 12.3 GM/dL (10.7-15.3); LYMPH % 22.7 % (8-40); MCH 29.7 pg (25.7-33.7); MCHC 32.2 g/dl (32.0-36.0); MEAN CELL VOLUME 92.2 fl (80-96); MONO % 7.3 % (3.8-10.2); NEUT % 67.8 % (42.8-82.8); PLATELET COUNT 244 K/MM3 (134-434); RBC 4.16 M/mm3 (3.60-5.2); WHITE BLOOD COUNT 6.8 K/mm3 (4.0-10.0)
== END 2018-04-19 19:05 | disposition home or self-care (01) ==
LOC: JERFT 14:50
DX: R21 Rash and other nonspecific skin eruption (principal); N30.01 Acute cystitis with hematuria
CPT/HCPCS: 36415; 80053; 81003; 81015; 82542; 85025; 85610; 99281-25